=== PATIENT | female | born 1985 | race Hispanic/Latino ===

== ENCOUNTER 2019-11-06 18:24 | Day surgery (SDC) | payer SELFPAY ==
[2019-11-06] MEDS ORDERED: SODIUM CHLORIDE 0.9% 1000 ML 1,000 ML IV ONE (18:46)
[2019-11-06] MEDS ORDERED: SODIUM CHLORIDE 0.9% 1000 ML 1,000 ML ONE (18:47)
--- NOTE | 2019-11-06 18:47 | Event Note ---
ED Screening Note Date of service: 11/06/19 Time: 18:47 ED Screening Note: Pt complains of RLQ pain x 2 days 8 weeks denies vaginal bleeding or urinary symptoms This initial assessment/diagnostic orders/clinical plan/treatment(s) is/are subject to change based on patients health status, clinical progression and re- assessment by fellow clinical providers in the ED. Further treatment and workup at subsequent clinical providers discretion. Patient/guardian urged not to elope from the ED as their condition may be serious if not clinically assessed and managed. Initial orders include: labs US saline bolus
[2019-11-06 20:03] LABS: Basophils # (Auto) 0.1 K/mm3 (0.0-0.1); Basophils % (Auto) 0.4 % (0.0-1.8); Eosinophils % (Auto) 0.1 % (0.0-4.3); Hematocrit 33.4 % (30.3-42.9); Hemoglobin 11.2 gm/dl (10.1-14.3); Lymphocytes # (Auto) 1.6 K/mm3 (1.2-5.4); Lymphocytes % (Auto) 8.6 % (13.4-35.0); Mean Corpuscular HGB Conc 33 % (30-34); Mean Corpuscular Volume 89 fl (79-97); Monocytes # (Auto) 0.4 K/mm3 (0.0-0.8); Monocytes % (Auto) 2.2 % (0.0-7.3); Platelet Count 222 K/mm3 (140-440); Red Blood Count 3.77 M/mm3 (3.65-5.03); Red Cell Distribution Width 12.1 % (13.2-15.2)
[2019-11-06] MEDS ORDERED: ONDANSETRON 4 MG/2 ML INJ ONE ×2 (20:12→22:08)
[2019-11-06] MEDS ORDERED: fentaNYL 100 MCG/2 ML INJ ONE ×4 (20:12→22:35)
[2019-11-06] MEDS ORDERED: ONDANSETRON 4 MG/2 ML INJ IV ONE (20:14)
[2019-11-06] MEDS: fentaNYL 100 MCG/2 ML INJ IV ONE ×2 (20:18→21:22)
--- NOTE | 2019-11-06 20:22 | Ultrasound Report ---
ULTRASOUND OBSTETRIC INDICATION / CLINICAL INFORMATION: Right lower quadrant pain. Clinical Gestational Age (GA): 8 weeks 5 days by last menstrual period TECHNIQUE: Transabdominal. COMPARISON: None available. FINDINGS: Normal-appearing uterus measuring 6.5 x 2.7 x 3.3 cm, with endometrial stripe thickness of 9 mm. No intrauterine gestational sac is identified. A roughly ovoid gestational sac is identified adjacent to the right ovary, with pole inside greer suring 0.85 cm in length, corresponding to 6 weeks 6 days ultrasound age. The heart rate is 145 bpm. Right ovary otherwise has a normal appearance with measurements 4.2 x 2.6 x 3.5 cm. Left ovary is not visualized. There is small to moderate volume of complex free fluid in the cul-de-sac. IMPRESSION: Findings highly concerning for ectopic located adjacent to the right ovary, with presence o f complex free fluid in the cul-de-sac raising the question of rupture. These findings were conveyed to Dr. Morris by telephone at 7:15 PM 11/06/2019. Signer Name: Beck Jacob MD Signed: 11/06/2019 8:18 PM Workstation Name: [id number]
[2019-11-06 20:28] LABS: Bilirubin,Urine NEG (Negative); Blood,Urine NEG (Negative); Color,Urine Yellow (Yellow); Mucus,Urine 2+ /HPF; Protein,Urine <15 mg/dL mg/dL (Negative); Urobilinogen,Urine < 2.0 mg/dL (<2.0)
--- NOTE | 2019-11-06 20:28 | Emergency Department Report ---
HPI - General Chief Complaint: Abdominal Pain Time Seen by Provider: 11/06/19 18:48 - HPI HPI: 34-year-old female presents to the emergency department with a complaint of right-sided abdomen, pelvic and flank pain for the past 24 hours. 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 The patient is currently and is . The patient was following with [facility] CUTTER APPRENTICE. She saw them at about 5 weeks when she was having heavy vaginal bleeding and was told that she was having a miscarriage. She recently saw them on November 03 and was told that she was in fact still and the hormone level had gone up from about 1800-24,000. She has not taken anything for her symptoms prior to presentation. No other past medical history. ED Past Medical Hx - Past Medical History Previous Medical History?: No - Surgical History Past Surgical History?: No - Social History Smoking Status: Never Smoker Substance Use Type: None ED Review of Systems ROS: Stated complaint: ABDOMINAL PAIN/8 WEEKS/RT SIDE Other details as noted in HPI Comment: All other systems reviewed and negative Constitutional: denies: chills, fever Respiratory: denies: cough, shortness of breath Cardiovascular: denies: chest pain, palpitations Gastrointestinal: abdominal pain. denies: vomiting Genitourinary: other (pelvic pain). denies: dysuria Musculoskeletal: denies: back pain, arthralgia Skin: denies: rash, lesions Neurological: denies: headache, weakness Physical Exam - Physical Exam Vital Signs: Vital Signs 11/06/19 11/06/19 18:39 20:15 Temperature 97.5 F L Pulse Rate 92 H 102 H Respiratory 18 23 Rate Blood Pressure 122/77 101/69 O2 Sat by Pulse 99 98 Oximetry Physical Exam: GENERAL: The patient is well-developed well-nourished. HEENT: Normocephalic. Atraumatic. Patient has moist mucous membranes. EYES: Extraocular motions are intact. NECK: Supple. Trachea is midline CHEST/LUNGS: Clear to auscultation. There is no respiratory distress noted. HEART/CARDIOVASCULAR: Regular. There is no tachycardia. ABDOMEN: Abdomen is soft. Patient has right middle to lower quadrant abdominal tenderness to palpation. There is some mild guarding. The patient has peritoneal signs with heel strike. Patient has normal bowel sounds. There is no abdominal distention. SKIN: Skin is warm and dry. NEURO: The patient is awake, alert, and oriented. The patient is cooperative. The patient has no focal neurologic deficits. Normal speech. MUSCULOSKELETAL: There is no tenderness or deformity. There is no evidence of acute injury. ED Course Vital Signs 11/06/19 11/06/19 18:39 20:15 Temperature 97.5 F L Pulse Rate 92 H 102 H Respiratory 18 23 Rate Blood Pressure 122/77 101/69 O2 Sat by Pulse 99 98 Oximetry - Consultations Consultation #1: The GRAN[employer] CUTTER APPRENTICE on-call, Dr. Toro Grant, was contacted regarding the patient's ectopic and he is coming to the emergency department to see this patient. 11/06/19 20:28 ED Medical Decision Making - Lab Data Result diagrams: 11/06/19 19:48 11/06/19 19:48 - Radiology Data Radiology results: report reviewed Obstetric ultrasound resulted showing findings that are highly suspicious for an ectopic just adjacent to the right ovary. There is also complex fluid within the cul-de-sac of the pelvis concerning for possible rupture. - Medical Decision Making This patient presents with right abdominal, flank and pelvic pain while . Patient was sent for an obstetrical ultrasound came back highly suspicious for a right sided ectopic just adjacent to the right ovary with some complex fluid within the cul-de-sac concerning for possible rupture. She is tender to palpation and has some peritoneal signs on examination. The GRANITE CUTTER APPRENTICE on-call, Dr. Grant, was immediately contacted. Dr. Grant came to the patient in the emergency department and will be taking her to the operating room for a right-sided laparoscopic salpingectomy. Vital signs have been stable throughout her ED course thus far. Hemoglobin is stable at 11.2. There is a leukocytosis of about 19,000. Beta hCG at 21,000. The patient has been given 2 L of IV fluid and a few doses of pain medication. - Differential Diagnosis ectopic , ovarian cysts, fibroids, miscarriage Critical Care Time: Yes Critical care time in (mins) excluding proc time.: 35 Critical care attestation.: If time is entered above; I have spent that time in minutes in the direct care of this critically ill patient, excluding procedure time. Critical care time was spent on this patient during her initial evaluation, multiple re- evaluations, ordering and interpretation of labs and imaging, discussions with the GRAN[employer] C[employer]TER APPRENTICE construction accountant, multiple discussion with the patient and her significant other. Critical Care Time: 35 minutes ED Disposition Clinical Impression: Ectopic , tubal Qualifiers: Intrauterine status: without intrauterine Laterality: right Qualified Code(s): O00.101 - Right tubal without intrauterine pr egnancy Disposition: 09 OP ADMIT IP TO THIS HOSP Is pt being admited?: Yes Condition: Serious Time of Disposition: 22:07
[2019-11-06 20:29] LABS: Alanine Aminotransferase 9 units/L (7-56); Albumin 3.8 g/dL (3.9-5); BUN/Creatinine Ratio 28; Blood Urea Nitrogen 14 mg/dL (7-17); Calcium 8.7 mg/dL (8.4-10.2); Hemolysis Index 3
--- NOTE | 2019-11-06 20:55 | Short Stay Summary ---
Short Stay Documentation Date of service: 11/06/19 Narrative H&P: Pt is a 34-year-old female LMP 09/06/19 presents to the emergency department with a complaint of right-sided abdomen, pelvic and flank pain for the past 24 hours. 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 She is currently , and was following with [facility] II MANAGER. She saw them at about 5 weeks when she was having heavy vaginal bleeding and was told that she was having a miscarriage. She recently saw them on November 03 and was told that she was in fact still and the hormone level had gone up from about 1800-24,000. Pelvic u/s shows a complex Right mass with FHT's 145. H/H is stable at 11.2/33.4 and Bhcg 21,085. She has not taken anything for her symptoms prior to presentation. No other past medical history. She will th erefore be admitted for a Laparoscopic Right salpingectomy/salpingostomy for a Right ectopic . - History Principal diagnosis: Right ectopic H&P: obtained from office Past Medical History: No medical history Past Surgical History: Other (Ear surgery) Social history: no significant social history, single - Allergies and Medications Current Medications: Allergies Penicillins Allergy (Verified 11/06/19 18:35) Shortness of Breath Sulfa (Sulfonamide Antibiotics) Allergy (Verified 11/06/19 18:35) Shortness of Breath - Physical exam General appearance: mild distress Integumentary: no rash HEENT: Atraumatic Lungs: Clear to auscultation Breasts: deferred Heart: Regular rate Gastrointestinal: normal Female Genitourinary: deferred Rectal Exam: deferred Extremities: no ischemia Neurological: Normal speech - Brief post op/procedure progress note Date of procedure: 11/07/19 Pre-op diagnosis: Right ectopic Post-op diagnosis: same (Ruptured right ectopic ) Procedure: Laparoscopic Right ovarian cystectomy/salpingectomy Anesthesia: GETA Findings: A normal uterus. Normal left fallopian tube and ovary. Absent right fallopian tube and displaced right ovary in the right flank region. ~ 500mls of hematoperitoneum. Surgeon: JAZMYN BARFIELD Estimated blood loss: other (500ml) Pathology: none (right ectopic mass) Specimen disposition: to lab Condition: stable - Hospital course Hospital course: Unremarkable. Post op H/H - 8.6/25.5 - Disposition Condition at discharge: Good Disposition: DC-01 TO HOME OR SELFCARE - Discharge Diagnoses (1) Ectopic of right ovary Status: Resolved (2) Hemoperitoneum due to rupture of right tubal ectopic Status: Resolved Short Stay Discharge Plan Activity: no restrictions Diet: regular Wound: open to air, keep clean and dry Follow up with: JAZMYN BARFIELD MD [Staff Physician] - 11/21/19 MANASSAS SHUN RAYA MD [Primary Care Provider] - 11/21/19 Prescriptions: Ferrous Sulfate [Feosol 325 MG tab] 325 mg PO BID #60 tablet Ibuprofen [Motrin] 800 mg PO Q8HR PRN #30 tablet PRN Reason: Pain, Mild (1-3) HYDROcodone/APAP 5-325 [[place] 5/325] 1 each PO Q6HR PRN #30 tablet PRN Reason: Pain
[2019-11-06] MEDS ORDERED: GENTAMICIN/NS 80 MG/100 ML 100 ML IV ONE (21:00)
[2019-11-06] MEDS ORDERED: LACTATED RINGERS 1,000 ML IV SCH (21:00)
[2019-11-06] MEDS ORDERED: ROCURONIUM 50 MG/5 ML INJ IV ONE (22:08)
[2019-11-06] MEDS ORDERED: GLYCOPYRROLATE 0.4 MG/2 ML INJ ONE (22:08)
[2019-11-06] MEDS ORDERED: dexAMETHasone 20 MG/5 ML VIAL ONE (22:08)
[2019-11-06] MEDS ORDERED: LIDOCAINE MPF (2%) 20 MG/1 ML VIAL 5 ML ONE (22:08)
[2019-11-06] MEDS ORDERED: PHENYLEPHRINE/NS 1,000 MCG/10 ML SYRINGE (OR USE) IV ONE (22:08)
[2019-11-06] MEDS ORDERED: NEOSTIGMINE 10MG/10 ML INJ MDV ONE (22:08)
[2019-11-06] MEDS ORDERED: PROPOFOL 200 MG/20 ML VIAL IV ONE (22:08)
[2019-11-06] MEDS ORDERED: MEPERIDINE 25 MG/1 ML INJ IV PRN (22:09)
[2019-11-06] MEDS ORDERED: HYDROmorphone 1 MG/1 ML INJ IV PRN (22:09)
[2019-11-06] MEDS ORDERED: ONDANSETRON 4 MG/2 ML INJ IV PRN (22:09)
--- NOTE | 2019-11-06 22:09 | Anesthesia Consultation ---
Anesthesia Consult and Med Hx Date of service: 11/06/19 - Airway Anesthetic Teeth Evaluation: Good ROM Head & Neck: Adequate Mental/Hyoid Distance: Adequate Mallampati Class: Class II Intubation Access Assessment: Probably Good - Pulmonary Exam CTA: Yes - Cardiac Exam Cardiac Exam: RRR - Pre-Operative Health Status ASA Pre-Surgery Classification: ASA1, Emergency Proposed Anesthetic Plan: General - Pulmonary Hx Smoking: No Hx Respiratory Symptoms: Yes (recent treatment for sinus infection) SOB: No - Cardiovascular System Hx Hypertension: No Hx Heart Attack/AMI: No - Central Nervous System CVA: No - Gastrointestinal Hx Gastroesophageal Reflux Disease: No - Endocrine Hx Renal Disease: No Hx Liver Disease: No Hx Insulin Dependent Diabetes: No Hx Non-Insulin Dependent Diabetes: No Hx Thyroid Disease: No - Hematic Hx Anemia: Yes - Other Systems Hx Obesity: No - Additional Comments Anesthesia Medical History Comments: No hx anesthetic complications. No significant PMH scheduled for laparoscopy for ectopic prenancy. No nausea/vomiting and NPO >8hrs. HD stable, anemic with T&S pending. Plan GETA. Discussed possibility of intraoperative blood transfusion.
--- NOTE | 2019-11-06 22:09 | Anesthesia Day of Surgery ---
Anesthesia Day of Surgery - Day of Surgery Patient Examined: Yes Patient H&P Reviewed: Yes Patient is NPO: Yes
[2019-11-06] MEDS ORDERED: BUPIVACAINE/PF (0.5%) 5 MG/1 ML 10 ML VIAL INFILTRATI ONE ×4 (22:10→23:49)
[2019-11-06] MEDS ORDERED: SCOPOLAMINE TRANSDERMAL PATCH 72 HR TD ONE (22:12)
[2019-11-06] MEDS ORDERED: MIDAZOLAM 2 MG/2 ML INJ ONE (22:35)
[2019-11-06] MEDS ORDERED: ePHEDrine SULFATE 50 MG/1 ML INJ ONE (22:48)
[2019-11-06] MEDS ORDERED: GENTAMICIN 40 MG/ML VIAL 2 ML ONE (22:55)
[2019-11-06] MEDS ORDERED: SODIUM CHLORIDE 0.9% IRR 1,500 ML BOTTLE IR ONE (23:05)
[2019-11-06] MEDS ORDERED: SODIUM CHLORIDE 0.9% IRRIG SOLN 2000 ML IR ONE (23:31)
[2019-11-07 00:10] LABS: Hematocrit 25.5 % (30.3-42.9); Hemoglobin 8.6 gm/dl (10.1-14.3)
--- NOTE | 2019-11-07 00:21 | Operative Report ---
Operative Report Operative Report: Date of procedure: 11/06/2019 Pre-operative diagnosis: 1. Pelvic pain 2. Right ectopic Post-operative diagnosis: Same with Ruptured right ectopic Procedure name(s): Laparoscopic Right ovarian cystectomy/salpingectomy Surgeon: Dr. Toro Grant [employer] Supervisor: None Anesthesia: Gen. endotracheal intubation EBL: 500mls hematoperitoneum Findings: A normal uterus with normal left fallopian tube and ovary. Absent right fallopian tube, and displaced, bleeding right ovary in the right flank region. ~ 500mls of hematoperitoneum. Procedure: After the patient was correctly identified, she was prepped and draped in the usual sterile fashion and placed in the dorsolithotomy position. Next the bladder was emptied using a straight catheter, and the speculum was placed in the vaginal vault. The anterior lip of the cervix was grasped using single-tooth tenaculum, and the uterine manipulator was then placed. The tenaculum and speculum were then removed. Attention was then turned to the abdomen where periumbilical incision was made using the skin knife, and the Optiview trocar was inserted under direct visualization. Immediately there was noted to be a large amount of blood in the peritoneal cavity. After adequate amount of abdominal insufflation, visualization of the pelvic organs was obscured by the hemoperitoneum. A suprapubic and a right lateral incision was made through which 5 mm trochars were placed in order to aid in manipulation of the pelvic organs. Evacuation of the hemoperitoneum was performed using the suction apparel rental clerk, then visualization of the pelvic organs found the uterus to be normal except for the absence of the right fallopian tube and the displaced, bleeding right ovary in the flank region. The right complex ovarian cystic mass contained the ectopic which was excised using the Tripolar cautery, placed in an Endopouch and sent to pathology. The left fallopian tube and ovary were normal. Copious amounts of irrigation was then performed using 4 liters of irrigation, and then the Tisseel Sealant was sprayed across this ovarian cystectomy site. At this point the procedure was considered complete. All instruments were removed from the abdomen. The abdomen was deflated, and a periumbilical incision was closed using 0 Vicryl suture in a [id number] configuration on the fascia followed by 4 Monocryl suture in a sub-cuticular fashion on the skin. The suprapubic and right lateral incisions were closed in similar fashion. Each incision was infiltrated using 0.5% Marcaine Solution. The uterine manipulator was removed. The patient tolerated the procedure well and was transferred to recovery in stable condition.
[2019-11-07] MEDS ORDERED: HYDROcodone/ACETAMINOPHEN 7.5-325MG TAB ONE (00:36)
[2019-11-07] MEDS ORDERED: LACTATED RINGERS 1,000 ML ONE (00:37)
--- NOTE | 2019-11-07 00:57 | Post Anesthesia Evaluation ---
- Post Anesthesia Evaluation Patient Participated: Yes Airway Patent: Yes Stable Respiratory Function: Yes Nausea/Vomiting: No Temp > 96.8F: Yes Pain Manageable: Yes Adequeate Hydration: Yes Anesthesia Complications: No Other Comments: Awake, alert, HD stable, tolerating PO. Surgeon reviewed post op H/H. Patient OK for d/c to home. Family at bedside.
[2019-11-07 01:44] VITALS: BP 122/52
== END 2019-11-07 00:59 | disposition home or self-care (01) ==
LOC: ED 18:24 → OR 11-07 00:58
PROVIDERS: ATTEND Obstetrics & Gynecology
DX: O00.109 Unspecified tubal pregnancy without intrauterine pregnancy (principal); D64.9 Anemia, unspecified; Z79.899 Other long term (current) drug therapy; Z88.0 Allergy status to penicillin; Z88.2 Allergy status to sulfonamides
CPT/HCPCS: 36415; 59151; 76801; 80053; 81001; 83690; 84702; 85014; 85018; 85025; 86850; 86900; 86901; 88305; A4217; C9250; J1100; J1580; J2250; J2370; J2405; J2704; J2710; J3010; J7030; J7120

== ENCOUNTER 2019-11-08 09:46 | Emergency (ER) | payer OTHER ==
[2019-11-08 12:48] LABS: Basophils % (Auto) 0.2 % (0.0-1.8); Eosinophils % (Auto) 0.2 % (0.0-4.3); Hemoglobin 7.3 gm/dl (10.1-14.3); Lymphocytes # (Auto) 1.9 K/mm3 (1.2-5.4); Lymphocytes % (Auto) 20.3 % (13.4-35.0); Mean Corpuscular HGB Conc 35 % (30-34); Mean Corpuscular Volume 87 fl (79-97); Monocytes # (Auto) 0.3 K/mm3 (0.0-0.8); Monocytes % (Auto) 3.5 % (0.0-7.3); Platelet Count 152 K/mm3 (140-440); Red Blood Count 2.42 M/mm3 (3.65-5.03); Red Cell Distribution Width 12.4 % (13.2-15.2)
[2019-11-08 13:06] LABS: Alanine Aminotransferase 8 units/L (7-56); Albumin 3.6 g/dL (3.9-5); BUN/Creatinine Ratio 20; Blood Urea Nitrogen 10 mg/dL (7-17); Calcium 8.6 mg/dL (8.4-10.2); Hemolysis Index 0
[2019-11-08 13:07] LABS: Bilirubin,Direct < 0.2 mg/dL (0-0.2)
--- NOTE | 2019-11-08 13:55 | Emergency Department Report ---
ED General Adult HPI - General Chief complaint: Medical Clearance Stated complaint: POST OPP SURGERY/PAIN Time Seen by Provider: 11/08/19 13:31 Source: patient Mode of arrival: Ambulatory Limitations: No Limitations - History of Present Illness Initial comments: This is a 34-year-old female who presents to the emergency room with epigastric pain. Patient states she was discharged yesterday after diagnosis of ectopic surgery on the right ovary. She reports spotting started today. She was concerned and decided to follow-up in the emergency room due to Dr. Grant being of the office. She is currently taking pain medication with no improvement of symptoms. -: This morning Location: abdomen Radiation: non-radiation Severity scale (0 -10): 10 Quality: aching, sharp Consistency: intermittent Improves with: immobilization Worsens with: movement Associated Symptoms: denies other symptoms Treatments Prior to Arrival: NSAID - Related Data Previous Rx's Medication Instructions Recorded Last Taken Type Ferrous Sulfate [Feosol 325 MG tab] 325 mg PO BID #60 tablet 11/07/19 Unknown Rx HYDROcodone/APAP 5-325 [[place] 1 each PO Q6HR PRN #30 tablet 11/07/19 Unknown Rx 5/325] Ibuprofen [Motrin] 800 mg PO Q8HR PRN #30 tablet 11/07/19 Unknown Rx Ondansetron [Zofran Odt] 4 mg PO Q8HR PRN #20 tab.rapdis 11/08/19 Unknown Rx Allergies Allergy/AdvReac Type Severity Reaction Status Date / Time Penicillins Allergy Shortness Verified 11/06/19 18:35 of Breath Sulfa (Sulfonamide Allergy Shortness Verified 11/06/19 18:35 Antibiotics) of Breath ED Review of Systems ROS: Stated complaint: POST OPP SURGERY/PAIN Other details as noted in HPI Constitutional: denies: chills, fever Respiratory: denies: cough, shortness of breath, wheezing Cardiovascular: denies: chest pain, palpitations Gastrointestinal: abdominal pain. denies: nausea, diarrhea Genitourinary: denies: urgency, dysuria, discharge Musculoskeletal: denies: back pain, joint swelling, arthralgia Skin: denies: rash, lesions Neurological: denies: headache, weakness, paresthesias Psychiatric: denies: anxiety, depression ED Past Medical Hx - Past Medical History Hx Hypertension: No Hx Heart Attack/AMI: No Hx Liver Disease: No Hx Renal Disease: No - Social History Smoking Status: Never Smoker Substance Use Type: None - Medications Home Medications: Home Medications Medication Instructions Recorded Confirmed Last Taken Type Ferrous Sulfate [Feosol 325 MG tab] 325 mg PO BID #60 tablet 11/07/19 Unknown Rx HYDROcodone/APAP 5-325 [[place] 1 each PO Q6HR PRN #30 tablet 11/07/19 Unknown Rx 5/325] Ibuprofen [Motrin] 800 mg PO Q8HR PRN #30 tablet 11/07/19 Unknown Rx Ondansetron [Zofran Odt] 4 mg PO Q8HR PRN #20 tab.rapdis 11/08/19 Unknown Rx ED Physical Exam - General Limitations: No Limitations General appearance: alert, in no apparent distress ED Course Vital Signs 11/08/19 11/08/19 10:06 17:08 Temperature 98.4 F Pulse Rate 119 H 91 H Respiratory 18 16 Rate Blood Pressure 102/66 Blood Pressure 112/70 [Left] O2 Sat by Pulse 100 99 Oximetry - Reevaluation(s) Reevaluation #1: 11/08/19 14:[address] Toro Grant FILING CLERK office spoke with Maya Ruiz oracle etl developer licensed nurse practitioner. Advised to have pelvic ultrasound and compare changes. ED Medical Decision Making - Lab Data Result diagrams: 11/08/19 11:26 11/08/19 11:26 Lab Results 11/08/19 11/08/19 11/08/19 Range/Units 11:26 11:26 11:26 WBC 9.5 (4.5-11.0) K/mm3 RBC 2.42 L (3.65-5.03) M/mm3 Hgb 7.3 L (10.1-14.3) gm/dl Hct 21.0 L (30.3-42.9) % MCV 87 (79-97) fl MCH 30 (28-32) pg MCHC 35 H (30-34) % RDW 12.4 L (13.2-15.2) % Plt Count 152 (140-440) K/mm3 Lymph % (Auto) 20.3 (13.4-35.0) % [place] % (Auto) 3.5 (0.0-7.3) % Eos % (Auto) 0.2 (0.0-4.3) % Baso % (Auto) 0.2 (0.0-1.8) % Lymph # 1.9 (1.2-5.4) K/mm3 [place] # 0.3 (0.0-0.8) K/mm3 Eos # 0.0 (0.0-0.4) K/mm3 Baso # 0.0 (0.0-0.1) K/mm3 Seg Neutrophils % 75.8 H (40.0-70.0) % Seg Neutrophils # 7.2 (1.8-7.7) K/mm3 Sodium 140 D (137-145) mmol/L Potassium 3.9 (3.6-5.0) mmol/L Chloride 107.7 H (98-107) mmol/L Carbon Dioxide 21 L (22-30) mmol/L Anion Gap 15 mmol/L BUN 10 (7-17) mg/dL Creatinine 0.5 L (0.7-1.2) mg/dL Estimated GFR > 60 ml/min BUN/Creatinine Ratio 20 % Glucose 100 (65-100) mg/dL Calcium 8.6 (8.4-10.2) mg/dL Total Bilirubin 0.20 (0.1-1.2) mg/dL Direct Bilirubin < 0.2 (0-0.2) mg/dL AST 13 (5-40) units/L ALT 8 (7-56) units/L Alkaline Phosphatase 58 (35-129) units/L Total Protein 6.2 L (6.3-8.2) g/dL Albumin 3.6 L (3.9-5) g/dL Albumin/Globulin Ratio 1.4 % Lipase 17 (13-60) units/L HCG, Quant 5098 H (0-4) mIU/mL Blood Type Antibody Screen 11/08/19 Range/Units 11:26 WBC (4.5-11.0) K/mm3 RBC (3.65-5.03) M/mm3 Hgb (10.1-14.3) gm/dl Hct (30.3-42.9) % MCV (79-97) fl MCH (28-32) pg MCHC (30-34) % RDW (13.2-15.2) % Plt Count (140-440) K/mm3 Lymph % (Auto) (13.4-35.0) % [place] % (Auto) (0.0-7.3) % Eos % (Auto) (0.0-4.3) % Baso % (Auto) (0.0-1.8) % Lymph # (1.2-5.4) K/mm3 [place] # (0.0-0.8) K/mm3 Eos # (0.0-0.4) K/mm3 Baso # (0.0-0.1) K/mm3 Seg Neutrophils % (40.0-70.0) % Seg Neutrophils # (1.8-7.7) K/mm3 Sodium (137-145) mmol/L Potassium (3.6-5.0) mmol/L Chloride (98-107) mmol/L Carbon Dioxide (22-30) mmol/L Anion Gap mmol/L BUN (7-17) mg/dL Creatinine (0.7-1.2) mg/dL Estimated GFR ml/min BUN/Creatinine Ratio % Glucose (65-100) mg/dL Calcium (8.4-10.2) mg/dL Total Bilirubin (0.1-1.2) mg/dL Direct Bilirubin (0-0.2) mg/dL AST (5-40) units/L ALT (7-56) units/L Alkaline Phosphatase (35-129) units/L Total Protein (6.3-8.2) g/dL Albumin (3.9-5) g/dL Albumin/Globulin Ratio % Lipase (13-60) units/L HCG, Quant (0-4) mIU/mL Blood Type A POSITIVE Antibody Screen Negative - Radiology Data Radiology results: report reviewed ULTRASOUND PELVIC COMPLETE ULTRASOUND TRANSVAGINAL HISTORY: Pelvic pain, postop pain TECHNIQUE: Transabdominal and transvaginal ultrasound imaging with color Doppler interrogation. COMPARISON: 11/06/2018. FINDINGS: The uterus is anteverted and measures 5.9 x 3.4 x 3.5 cm. No uterine mass is identified. The endometrial stripe measures 8 mm. No endometrial fluid collection or . The right ovary measures 4.3 x 2.5 x 3.2 cm. The left ovary measures 2.4 x 1.3 x 3.6 cm. Previously described right adnexal mass is not identified on today's exam. There is moderate free fluid in the pelvis containing debris which appears slightly decreased since the previous exam. IMPRESSION: Unremarkable uterus and ovaries. Moderate free pelvic fluid. No new acute process is appreciated. CHEST 1 VIEW 11/08/2019 4:35 PM INDICATION / CLINICAL INFORMATION: epigastric pain. COMPARISON: None available. FINDINGS: SUPPORT DEVICES: None. HEART / MEDIASTINUM: No significant abnormality. LUNGS / PLEURA: No significant pulmonary or pleural abnormality. No pneumothorax. ADDITIONAL FINDINGS: No significant additional findings. IMPRESSION: 1. No acute abnormality of the chest. CT ABDOMEN AND PELVIS WITH CONTRAST INDICATION: epigastric pain s/p surgery. TECHNIQUE: Axial CT images were obtained through the abdomen and pelvis after 75 cc Omnipaque [address] scans at this location are performed using CT dose reduction for ALARA by means of automated exposure control. COMPARISON: None available. FINDINGS: LOWER CHEST: No significant abnormality. LIVER: No significant abnormality. GALLBLADDER: No significant abnormality. BILE DUCTS: No significant abnormality. PANCREAS: No significant abnormality. SPLEEN: No significant abnormality. ADRENALS: No significant abnormality. RIGHT KIDNEY and URETER: No significant abnormality. LEFT KIDNEY and URETER: Nonobstructing 2 mm left intrarenal stone. No ureteral stone or hydronephrosis. STOMACH and SMALL BOWEL: No significant abnormality. COLON: No significant abnormality. APPENDIX: No significant abnormality. PERITONEUM: Moderate amount of hyperdense free pelvic fluid characteristic for hemoperitoneum. Small pneumoperitoneum upper abdomen from recent surgery for ectopic No fluid collection. LYMPH NODES: No significant adenopathy. AORTA and ARTERIES: No significant abnormality. IVC and VEINS: No significant abnormality. URINARY BLADDER: No significant abnormality. REPRODUCTIVE ORGANS: No significant abnormality. ADDITIONAL FINDINGS: None. SKELETAL SYSTEM: No significant abnormality. IMPRESSION: 1. Moderate amount of hyperdense free pelvic fluid characteristic for hemoperit oneum with trace amount of free air in upper abdomen from recent laparoscopic surgery. 2. No drainable fluid collection or abscess. - Medical Decision Making Patient seen by this provider. Slight tachycardic on arrival. No acute distress. Labs, pelvic ultrasound, and CT of abdomen and pelvis obtained. Analgesics and antiemetic given. Anemia findings on labs. H/H 7.01/20. Patient followed by Sean Domínguez FILING CLERK with recent Laparoscopic Right ovarian cystectomy/salpingectomy. Currently taking iron tablets for anemia. Ultrasound finding of Unremarkable uterus and ovaries. Moderate free pelvic fluid. No new acute process is appreciated. Chest x-ray no acute findings. CT findings of 1. Moderate amount of hyperdense free pelvic fluid characteristic for hem operitoneum with trace amount of free air in upper abdomen from recent laparoscopic surgery. 2. No drainable fluid collection or abscess. Consulted Dr. Grant's office. Start Zofran for nausea. Patient is stable for discharge. Continue iron tablets and pain medication prescribed by Dr. Grant. Bed rest. Patient discharged home stable. Critical care attestation.: If time is entered above; I have spent that time in minutes in the direct care of this critically ill patient, excluding procedure time. ED Disposition Clinical Impression: Acute epigastric pain, Acute postoperative pain of abdomen, Nausea alone Disposition: - TO HOME OR SELFCARE Is pt being admited?: No Condition: Stable Instructions: Acute Abdominal Pain (ED), Acute Nausea and Vomiting (ED) Additional Instructions: Follow-up with Dr. Grant's office or return to the emergency room with worsening symptoms. Prescriptions: Ondansetron [Zofran Odt] 4 mg PO Q8HR PRN #20 tab.rapdis PRN Reason: Nausea And Vomiting Referrals: TORO GRANT MD [Staff Physician] - 3-5 Days Forms: Work/School Release Form(ED) Time of Disposition: 18:48
[2019-11-08] MEDS ORDERED: HYDROcodone/ACETAMINOPHEN 5-325 MG TAB PO ONE (15:53)
--- NOTE | 2019-11-08 16:01 | Ultrasound Report ---
ULTRASOUND PELVIC COMPLETE ULTRASOUND TRANSVAGINAL HISTORY: Pelvic pain, postop pain TECHNIQUE: Transabdominal and transvaginal ultrasound imaging with color Doppler interrogation. COMPARISON: 11/06/2018. FINDINGS: The uterus is anteverted and measures 5.9 x 3.4 x 3.5 cm. No uterine mass is identified. The endometrial stripe measures 8 mm. No endometrial fluid collection or . The right ovary measures 4.3 x 2.5 x 3.2 cm. The left ovary measures 2.4 x 1.3 x 3.6 cm. Previously d escribed right adnexal mass is not identified on today's exam. There is moderate free fluid in the pelvis containing debris which appears slightly decreased since t he previous exam. IMPRESSION: Unremarkable uterus and ovaries. Moderate free pelvic fluid. No new acute process is appreciated. Signer Name: Toro Cedeño Jr, MD Signed: 11/08/2019 3:56 PM Workstation Name: [id number]
[2019-11-08] MEDS ORDERED: ONDANSETRON 4 MG ODT TAB PO ONE (16:09)
[2019-11-08] MEDS ORDERED: ONDANSETRON 4 MG ODT TAB ONE (16:09)
--- NOTE | 2019-11-08 17:15 | XRay Report ---
CHEST 1 VIEW 11/08/2019 4:35 PM INDICATION / CLINICAL INFORMATION: epigastric pain. COMPARISON: None available. FINDINGS: SUPPORT DEVICES: None. HEART / MEDIASTINUM: No significant abnormality. LUNGS / PLEURA: No significant pulmonary or pleural abnormality. No pneumothorax. ADDITIONAL FINDINGS: No significant additional findings. IMPRESSION: 1. No acute abnormality of the chest. Signer Name: Fredi Bowman MD Signed: 11/08/2019 5:11 PM Workstation Name: [id number]
--- NOTE | 2019-11-08 18:30 | Cat Scan Report ---
CT ABDOMEN AND PELVIS WITH CONTRAST INDICATION: epigastric pain s/p surgery. TECHNIQUE: Axial CT images were obtained through the abdomen and pelvis after 75 cc Omnipaque [address] scans at this location are performed using CT dose reduction for ALARA by means of automated e xposure control. COMPARISON: None available. FINDINGS: LOWER CHEST: No significant abnormality. LIVER: No significant abnormality. GALLBLADDER: No significant abnormality. BILE DUCTS: No significant abnormality. PANCREAS: No significant abnormality. SPLEEN: No significant abnormality. ADRENALS: No significant abnormality. RIGHT KIDNEY and URETER: No significant abnormality. LEFT KIDNEY and URETER: Nonobstructing 2 mm left intrarenal stone. No ureteral stone or hydronephrosi s. STOMACH and SMALL BOWEL: No significant abnormality. COLON: No significant abnormality. APPENDIX: No significant abnormality. PERITONEUM: Moderate amount of hyperdense free pelvic fluid characteristic for hemoperitoneum. Small pneumoperitoneum upper abdomen from recent surgery for ectopic No fluid collection. LYMPH NODES: No significant adenopathy. AORTA and ARTERIES: No significant abnormality. IVC and VEINS: No significant abnormality. URINARY BLADDER: No significant abnormality. REPRODUCTIVE ORGANS: No significant abnormality. ADDITIONAL FINDINGS: None. SKELETAL SYSTEM: No significant abnormality. IMPRESSION: 1. Moderate amount of hyperdense free pelvic fluid characteristic for hemoperitoneum with trace amoun t of free air in upper abdomen from recent laparoscopic surgery. 2. No drainable fluid collection or abscess. Signer Name: Ian Alaniz MD Signed: 11/08/2019 6:25 PM Workstation Name: [id number]
[2019-11-08 19:18] VITALS: BP 116/69
== END 2019-11-08 22:20 | disposition home or self-care (01) ==
LOC: ED 09:46
DX: R10.13 Epigastric pain (principal); R11.0 Nausea; G89.18 Other acute postprocedural pain; Z88.2 Allergy status to sulfonamides
CPT/HCPCS: 36415; 71045; 74177; 76830; 76856; 80048; 80076; 83690; 84702; 85025; 86850; 86900; 86901; 99284; Q9967; Q0162